=== PATIENT | male | born 1980 | race Caucasian/White ===

== ENCOUNTER 2024-02-07 21:10 | Emergency (ER) | payer OTHER ==
[~2024-02-07] VITALS: Ht 182.9 cm; Wt 79.0 kg
[~2024-02-07 21:10] MED LIST: IBUPROFEN600 MG PO; PRILOSEC20 MG PO
[2024-02-07] MEDS ORDERED: MORPHINE SULFATE 10 MG/ML VIAL IM ONE (22:00)
[2024-02-07] MEDS ORDERED: KETOROLAC TROMETHAMINE 60 MG/2 ML VIAL IM ONE (22:00)
[2024-02-07] MEDS ORDERED: HYDROCODON-ACE1 EA10 PO (22:26)
[2024-02-07] MEDS ORDERED: HYDROCODONE BIT/ACETAMINOPHEN 5/325 MG 1 TAB HOME.PACK PO ONE (22:30)
[2024-02-07 22:32] VITALS: BP 118/84
== END 2024-02-07 22:36 | disposition home or self-care (01) ==
LOC: ED 21:10
DX: S22.32XA Fracture of one rib, left side, initial encounter for closed fracture (principal); V59.9XXA Occupant (driver) (passenger) of pick-up truck or van injured in unspecified traffic accident, initial encounter; Z79.899 Other long term (current) drug therapy
CPT/HCPCS: 71250; 94667; 96372; 99283-25; A9270; J1885